=== PATIENT | female | born 1980 | race Caucasian/White ===

== ENCOUNTER 2019-01-28 05:56 | Emergency (ER) | payer SELFPAY ==
[~2019-01-28] VITALS: Ht 162.6 cm; Wt 47.2 kg
[~2019-01-28 05:56] MED LIST: ACHD5005 PO; ALB.5NB20; ALBU8.5H2 IH; BSP10T PO; BSP5T PO; CELEXA; CYCL-97 PO; DCS100C PO; ELAVIL; FERR-57 PO; GABAPENTIN; IBP600T1 PO; OSLT75C PO; OXYCODONE; PREN1TAB39 PO; PROG100C3 PO; TYLENOL#3 PO; XANAX; [UNRECOGNIZED DRUG - OTHER]
--- OUTSIDE RECORDS SUMMARY | 2019-01-28 06:01 | XMS REPORT | Continuity of Care Document ---
Author Author [facility] Organization [facility] Address Unknown Phone Unavailable Care Team Providers Care Food Specialist Name Role Phone HUSSEIN STUART DO PP Insurance Providers Payer Name Policy Number Subscriber Name Relationship [facility] [id number] Kristyn Lira 01 Self / Same As Patient Advance Directives Directive Response Recorded Date Advance Directives N 06/09/13 7:00am Health Care Power of Mathematics Faculty Member N 06/09/13 7:00am Organ Donor Y 06/09/13 7:00am Problems No Known Problems or Medical conditions. Family History History Response Recorded Date/Time Hx Family Cancer Y GRANDFATHER-PROSTATE, GRANDMOTHER-SOME KIND 06/09/13 7:01am Hx Family Cardiac Disorders Y 06/09/13 7: 01am Hx Family Stroke Y DAD 06/09/13 7:01am Hx Family Hypertension Y DAD 06/09/13 7: 01am Hx Family Myocardial Infarction Y DAD 7:01am Social History History Response Recorded Date/Time Alcohol Use Denies Use 06/09/13 7:01am Recreational Drug Use N 06/09/13 7:01am Recent Foreign Travel N 06/09/13 7:01am Recent Infectious Disease Exposure N 7:01am Hospitalization with Isolation Denies 6:09pm Allergies, Adverse Reactions, Alerts Allergen Type Severity Reaction Last Updated duloxetine HCl Allergy Mild 01/16/12 morphine Allergy Mild 01/16/12 Medications Medication Dose Units Route Sig Qty Days Acetaminophen/Hydrocodone Bitart (Lorcet 5/325 Mg) 1 - 2 Tab PO Q4H PRN 45 Ibuprofen (Motrin) 600 Mg PO Q6H 40 Docusate Sodium (Colace Cap) 100 Mg PO BID 60 Albuterol (Proair Hfa) 1 Puff IH Q4H PRN Ferrous Sulfate 325 Mg PO DAILY Buspirone HCl (Buspar) 15 Mg PO BID Cyclobenzaprine HCl (Flexeril) 10 Mg PO HS Vits W-Ca,Fe,Fa(<1MG) () 1 Tab PO DAILY [Tylenol#3] 1 - 2 Tab PO Q4H PRN Progesterone,Micronized (Prometrium) 100 Mg PO DAILY Buspirone HCl (Buspar) 1 Tab PO BID 90 Albuterol Sulf (Proventil Inh Soln) Immunizations Name Given Type Date of Pneumonia Vaccine 06/10/13 H DTaP 06/10/13 A pneumococcal polysaccharide PPV23 06/11/13 A Response Recorded Date/Time Status not known Unknown Results Test Date Result Interp. Ref. Range Basophils # (Auto) June 01, 2013 1:50pm 0.0 10^3/uL N 0.0-0.1 Basophils (%) (Auto) June 01, 2013 1:50pm 0 % N 0-10 Eosinophils # (Auto) June 01, 2013 1:50pm 0.2 10^3/uL N 0.0-0.3 Eosinophils (%) (Auto) June 01, 2013 1:50pm 2 % N 0-10 Hematocrit June 01, 2013 1:50pm 36 % N 35-52 Hemoglobin June 01, 2013 1:50pm 12.1 G/ DL N 11.5-16.0 Lymphocytes # (Auto) June 01, 2013 1:50pm 2.3 X 10^3 N 1.0-4.0 Lymphocytes (%) (Auto) June 01, 2013 1:50pm 22 % N 12-44 Mean Corpuscular Hemoglobin June 01, 2013 1:50pm 32 PG N 25-34 Mean Corpuscular Hemoglobin Concent June 01, 2013 1:50pm 34 G/DL N 32-36 Mean Corpuscular Volume June 01, 2013 1:50pm 94 FL N 80-99 Mean Platelet Volume June 01, 2013 1:50pm 10.9 FL H 7.4-10.4 Monocytes # (Auto) June 01, 2013 1:50pm 1.0 X 10^3 N 0.0-1.0 Monocytes (%) (Auto) June 01, 2013 1:50pm 9 % N 0-12 Neutrophils # (Auto) June 01, 2013 1:50pm 7.0 X 10^3 N 1.8-7.8 Neutrophils (%) (Auto) June 01, 2013 1:50pm 67 % N 42-75 Platelet Count June 01, 2013 1:50pm 216 10^3/uL N 130-400 Red Blood Count June 01, 2013 1:50pm 3.78 10^6/uL L 4.35-5.85 Red Cell Distribution Width June 01, 2013 1:50pm 12.5 % N 10.0-14.5 Urine Bacteria June 01, 2013 1:50pm NEGATIVE /HPF - Urine Bilirubin June 01, 2013 1:50pm NEGATIVE - Urine Casts June 01, 2013 1:50pm NONE / LPF - Urine Clarity June 01, 2013 1:50pm CLEAR - Urine Color June 01, 2013 1:50pm YELLOW - Urine Crystals June 01, 2013 1:50pm NONE /LPF - Urine Culture Indicated June 01, 2013 1:50pm NO - Urine Glucose (UA) June 01, 2013 1:50pm NEGATIVE - Urine HCG, Qualitative May 22, 2007 5:25pm Negative - Urine Ketones June 01, 2013 1:50pm NEGATIVE - Urine Leukocyte Esterase June 01, 2013 1:50pm NEGATIVE - Urine Mucus June 01, 2013 1:50pm NEGATIVE /LPF - Urine Nitrite June 01, 2013 1:50pm NEGATIVE - Urine Protein June 01, 2013 1:50pm NEGATIVE - Urine RBC June 01, 2013 1:50pm NONE / HPF - Urine Specific [place] June 01, 2013 1:50pm 1.005 L - Urine Squamous Epithelial Cells June 01, 2013 1:50pm 2-5 /HPF - Urine Urobilinogen June 01, 2013 1:50pm NORMAL MG/DL - Urine WBC June 01, 2013 1:50pm NONE / HPF - Urine pH June 01, 2013 1:50pm 7 - White Blood Count June 01, 2013 1:50pm 10.4 10^3/uL N 4.3-11.0 Urine RBC (Auto) June 01, 2013 1:50pm NEGATIVE - Procedures Procedure Code Date MRSA Screen 06/01/13 Encounters Encounter Location Date/Time Discharged Inpatient [facility] 6:03am Departed Emergency Room [facility] 01/24 9:46am
[2019-01-28] MEDS ORDERED: LIDOCAINE 1% INJ 20 ML 20 ML VIAL ONE (06:21)
[2019-01-28] MEDS ORDERED: LIDOCAINE 1% INJ 20 ML 20 ML VIAL INJ ONE (06:30)
--- NOTE | 2019-01-28 06:51 | ED Upper Extremity ---
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 no bleeding noted Nursing Sepsis Screen: No Definite Risk History of Present Illness Date Seen by Provider: Jan 28, 2019 Time Seen by Provider: 06:20 Initial Comments 39 yr old female who sustained a laceration to her left index finger while sharpening a knife. She denies any paresthesias or lack of motor function. This occurred just prior to her arrival here. She had brisk bleeding controlled with local pressure. Onset: just prior to arrival Pain/Injury Location: left 2nd finger Method of Injury: incised Allergies and Home Medications Allergies Coded Allergies: duloxetine HCl (Verified Allergy, Mild, 01/16/12) morphine (Verified Allergy, Mild, 01/16/12) Home Medications Albuterol 8.5 Gm Hfa.aer.ad, 1 PUFF IH Q4H PRN, (Reported) PRN ASTHMA Buspirone Hcl 10 Mg Tablet, 15 MG PO BID, (Reported) Cyclobenzaprine Hcl 10 Mg Tablet, 10 MG PO HS, (Reported) Docusate Sodium 100 Mg Cap, 100 MG PO BID Prescribed by: AMOR SHIRLEY on 06/11/13 08 Ferrous Sulfate 325 Mg Tablet, 325 MG PO DAILY, (Reported) Hydrocodone Bit/Acetaminophen 1 Tab Tablet, 1-2 TAB PO Q4H PRN Prescribed by: AMOR SHIRLEY on 06/11/13804 Ibuprofen 600 Mg Tab, 600 MG PO Q6H Prescribed by: AMOR SHIRLEY on 06/11/13 08 Vits W-Ca,Fe,Fa(<1MG) 1 Each Tablet, 1 TAB PO DAILY, (Reported) Patient Home Medication List Home Medication List Reviewed: Yes Review of Systems Constitutional: see HPI EENTM: see HPI Respiratory: see HPI Cardiovascular: see HPI Gastrointestinal: see HPI Genitourinary: see HPI Musculoskeletal: see HPI Skin: see HPI Psychiatric/Neurological: See HPI, Anxiety All Other Systems Reviewed Negative Unless Noted: Yes (Negative excepted noted.) Past Pzqckur-Eynnym-Fdiwih Hx Patient Social History Alcohol Use: Denies Use Recreational Drug Use: No Smoking Status: Never a Smoker 2nd Hand Smoke Exposure: No Recent Foreign Travel: No Contact w/Someone Who Travel: No Recent Infectious Disease Expo: No Recent Hopitalizations: No Physical Abuse: No Sexual Abuse: No Mistreated: No Fear: No Immunizations Up To Date Tetanus Booster (TDap): Unknown Date of Pneumonia Vaccine: Jun 10, 2013 Seasonal Allergies Seasonal Allergies: No Past Medical History Surgeries: No Respiratory: No Asthma Cardiac: No Neurological: No Reproductive Disorders: No Genitourinary: No Gastrointestinal: No Musculoskeletal: No Fibromyalgia, Chronic Back Pain Endocrine: No HEENT: No Cancer: No Psychosocial: Yes Anxiety, Depression Integumentary: No Blood Disorders: No Adverse Reaction/Blood Tranf: No Physical Exam Vital Signs Vital Signs - First Documented 01/28/19 06:24 Temp 96.7 Pulse 89 Resp 18 B/P (MAP) 122/49 (73) Pulse Ox 98 Capillary Refill : Less Than 3 Seconds Height, Weight, BMI Height: 5'4.00" Weight: 104lbs. oz. 47.798012ne; BMI Method:Stated General Appearance: WD/WN, no apparent distress, thin HEENT: PERRL/EOMI, normal ENT inspection, TMs normal, pharynx normal Neck: non-tender, full range of motion, supple, normal inspection Cardiovascular: normal peripheral pulses, regular rate, rhythm, no edema, no gallop, no JVD, no murmur Respiratory: chest non-tender, lungs clear, normal breath sounds, no respiratory distress, no accessory muscle use Gastrointestinal: normal bowel sounds, non tender, soft, no organomegaly, no pulsatile mass, abnormal bowel sounds Back: normal inspection, no CVA tenderness, no vertebral tenderness, CVA tenderness (R), CVA tenderness (L) Shoulder: normal inspection Elbow/Forearm: normal inspection Wrist: Yes normal inspection Hand: laceration (4 cm laceration on the dorsal hand beginning that PIP joint extending to the DIP joint. Motor function was tested and was normal. Sensation light touch was normal. Capillary refill is normal.) Procedures/Interventions Wound Location: Upper Extremities Other Wound Location LIF Wound Length (cm): 4 Wound's Depth, Shape: superficial Wound Explored: no foreign body removed Irrigated w/ Saline (ccs): 100 Betadine Prep?: Yes Anesthesia: 1% Lidocaine (digital block with excellent anesthesia) Volume Anesthetic (ccs): 4 Suture: Ethlion Suture Size: 4-0 Number of Sutures: 6 Sterile Dressing Applied?: Yes Progress Wound explored and no tendon injury noted. Patient tolerated repair well. Wound care instructions given. Recommend suture removal in approximately 10 days. Progress/Results/Core Measures Results/Orders My Orders Orders - FELY ARGUETA MD Lidocaine 1% Inj 20 Ml (Xylocaine 1% Inj (01/28/19 06:30) Vital Signs/I&O 01/28/19 06:24 Temp 96.7 Pulse 89 Resp 18 B/P (MAP) 122/49 (73) Pulse Ox 98 Blood Pressure Mean: 73 Progress Progress Note : Time: 06:55 Progress Note Patient unaware of when she had last tetanus. She thinks it's been over 10 years. She states she had pertussis vaccine administered approximate 5 years ago. We'll give TD vaccination. Patient understands and is agreeable. Departure Impression Primary Impression: Laceration of left index finger w/o foreign body w/o damage to nail Qualified Codes: S61.211A - Laceration without foreign body of left index finger without damage to nail, initial encounter Disposition: 01 HOME, SELF-CARE Condition: Improved Departure-Patient Inst. Referrals: HUSESIN STUART DO (PCP) Primary Care Physician 10 days, sooner as needed Patient Instructions: Laceration Repair With Stitches (DC) FELY ARGUETA MD Jan 28, 2019 06:51
[2019-01-28] MEDS ORDERED: TETANUS & DIPHTHERIA TOX,ADULT 0.5 ML (TENIVAC) IM ONE (07:00)
[2019-01-28 07:27] VITALS: BP 122/76
== END 2019-01-28 07:27 | disposition home or self-care (01) ==
LOC: EDUNIT# 05:56 → ER FS 05:58
DX: S61.211A Laceration without foreign body of left index finger without damage to nail, initial encounter (principal); J45.909 Unspecified asthma, uncomplicated; F32.9 Major depressive disorder, single episode, unspecified; F41.9 Anxiety disorder, unspecified; Z88.5 Allergy status to narcotic agent; Z88.8 Allergy status to other drugs, medicaments and biological substances; Z79.51 Long term (current) use of inhaled steroids; W26.0XXA Contact with knife, initial encounter
CPT/HCPCS: 12042; 64450; 90714